=== PATIENT | female | born 1955 ===

== ENCOUNTER 2022-05-30 17:21 | Inpatient (IN) | payer MEDICARE ==
[~2022-05-30] VITALS: Ht 162.6 cm; Wt 126.9 kg
[2022-05-30] VITALS (23 sets, daily range): BP systolic 79–140; BP diastolic 43–110
[2022-05-30 17:58] LABS: Source, Urine Foley catheter
[2022-05-30 18:06] LABS: Bilirubin, Urine Neg (Neg); Blood, Urine 2+ (Neg); Color, Urine Yellow (P-Yellow); Glucose Qualitative, Urine 4+ (Neg); Ketones, Urine 2+ (Neg); Leukocyte Esterase, Urine 1+ (Neg); Nitrite, Urine Neg (Neg); Protein, Urine 2+ (Neg); Specific Gravity, Urine 1.015 (1.003-1.022); Urobilinogen, Urine NORM (Normal)
[2022-05-30 18:21] LABS: Appearance, Urine Hazy (Clear)
[2022-05-30 18:23] LABS: Mucus Light (0-Heavy)
[2022-05-30 18:24] LABS: Amorphous Light (0-Heavy); Bacteria Many /hpf; Red Blood Cells, Urine 0-2 /hpf (0-2); Squamous Epithelial Cells Rare /hpf (Few)
--- NOTE | 2022-05-30 18:39 | NUR ---
ADMIT PT ARRIVED TO ICU [address] [facility] A DIRECT ADMIT AT 1655. PT IS AWAKE, ALERT, AND ORIENTED UPON ARRIVAL. PT SLOW TO ANSWER QUESTIONS AT TIMES. PT DENIES PAIN, NAUSEA, AND SOB. VITAL SIGNS STABLE. PT INITIALLY ARRIVED ON LEVOPHED GTT AT 6.1 MCG/MIN AND INSULIN GTT AT 20 UNITS/HR. LEVOPHED TITRATED TO 5 MCG/MIN AND INSULIN GTT TO 5 UNITS/HR. CBG CHECK 360'S UPON ARRIVAL. CANTU IN PLACE UPON ARRIVAL WITH YELLOW OUTPUT NOTED. UA SENT. PICC PLACED TO [facility] AT THIS TIME. NS STARTED AT 250 ML/HR PER ORDERS. LS CLEAR. PT ON ROOM AIR. PT ABLE TO TURN SELF SIDE TO SIDE IN BED. SKIN IS C/D/I, MINIMAL REDDNESS TO COCCYX NOTED. WILL CONTINUE TO MONITOR AND REPORT OFF TO ONCOMING RN.
[2022-05-30] MEDS ORDERED: BASAGLAR K100 UNIT/3 SC (19:00)
[2022-05-30] MEDS ORDERED: Prinivil10 MG PO (19:01)
[2022-05-30] MEDS ORDERED: ATEN50 PO (19:03)
[2022-05-30] MEDS ORDERED: FUROSEMIDE40 MG PO (19:05)
[2022-05-30] MEDS ORDERED: PREMPRO (19:05)
[2022-05-30] MEDS ORDERED: ATORVASTATIN CA20 MG PO (19:06)
[2022-05-30] MEDS ORDERED: PRAMIPEXOLE D0.25 M1 PO (19:06)
[2022-05-30 19:17] LABS: Magnesium, Blood 1.9 mg/dL (1.6-2.4); Uric Acid, Blood 10.2 mg/dL (2.6-6.0)
[2022-05-30 19:24] LABS: Albumin, Blood 2.9 g/dL (3.4-5.0); Albumin/Globulin Ratio 0.9 (0.8-1.8); Bilirubin, Total 0.4 mg/dL (0.1-1.0); Bun/Creatinine Ratio 22.8 (12.0-20.0); Calcium, Blood 9.2 mg/dL (8.5-10.1); Creatinine, Blood 2.5 mg/dL (0.40-1.00); Globulin, Blood 3.3 g/dL (2.2-4.0); Phosphorus, Blood 3.8 mg/dL (2.5-4.9); Potassium, Blood 3.3 mmol/L (3.5-5.5); Thyroid Stimulating Hormone 0.769 uIU/mL (0.360-4.800); Total Protein, Blood 6.2 g/dL (6.4-8.2)
--- NOTE | 2022-05-30 20:47 | NUR ---
ASSUMED CARE AT 1900 PATIENT IS ALERT AND ORIENTED X4. 02 SATS >95% ON RA, DENIES SOB. HR SB-SR 50-60s. BP STABLE ON LEVOPHED 3 MCG/MIN. DENIES CP/PRESSURE. CANTU PATENT AND DRAINING TO GRAVITY, CLEAR YELLOW. INSULIN GTT INFUSING, REPLACING POTASSIU. REPOSITIONS SELF IN BED. AT BEDSIDE FOR A COUPLE HOURS. CALL LIGHT IN REACH
[2022-05-30 23:02] LABS: Bun/Creatinine Ratio 27.3 (12.0-20.0); Calcium, Blood 9.1 mg/dL (8.5-10.1); Creatinine, Blood 1.87 mg/dL (0.40-1.00); Magnesium, Blood 1.9 mg/dL (1.6-2.4); Phosphorus, Blood 2.9 mg/dL (2.5-4.9); Potassium, Blood 3.3 mmol/L (3.5-5.5)
[2022-05-31] VITALS (37 sets, daily range): BP systolic 71–139; BP diastolic 39–112
[2022-05-31 03:11] LABS: Bun/Creatinine Ratio 28.7 (12.0-20.0); Calcium, Blood 8.8 mg/dL (8.5-10.1); Creatinine, Blood 1.64 mg/dL (0.40-1.00); Magnesium, Blood 1.6 mg/dL (1.6-2.4); Phosphorus, Blood 3.1 mg/dL (2.5-4.9); Potassium, Blood 3.9 mmol/L (3.5-5.5)
--- NOTE | 2022-05-31 06:14 | NUR ---
SHIFT SUMMARY PATIENT REMAINS ALERT AND ORIENTED X4. 02 SATS >95% ON RA, DENIES SOB. HR 60-70s WITH PVCs. BP STABLE, LEVOPHED TITRATED OFF THIS AM. DENIES CP/PRESSURE. INSULING DRIP OFF AT APPROX 0030, LONG ACTING INSULIN GIVEN AN HOUR PRIOR. PATIENT EATING. FLUIDS REMAINS INFUSING. INDEPENDENT IN BED. CALL LIGHT IN REACH
[2022-05-31 07:01] LABS: Magnesium, Blood 1.5 mg/dL (1.6-2.4)
[2022-05-31 07:02] LABS: Bun/Creatinine Ratio 29.9 (12.0-20.0); Calcium, Blood 8.4 mg/dL (8.5-10.1); Creatinine, Blood 1.37 mg/dL (0.40-1.00); Phosphorus, Blood 2.9 mg/dL (2.5-4.9); Potassium, Blood 3.8 mmol/L (3.5-5.5)
[2022-05-31 12:09] LABS: Bun/Creatinine Ratio 28.8 (12.0-20.0); Calcium, Blood 8.5 mg/dL (8.5-10.1); Creatinine, Blood 1.32 mg/dL (0.40-1.00); Potassium, Blood 3.8 mmol/L (3.5-5.5)
--- NOTE | 2022-05-31 12:18 | NUR ---
PT ARRIVED TO UNIT FROM ICU BROUGHT VIA WHEELCHAIR, ABLE TO STAND AND TRANSFER INDEPENDENTLY. PT DENIES NEEDS AT THIS TIME. TOLERATING PO WELL. CALL LIGHT PROVIDED, EDUCATED ON USE. [id number].
--- NOTE | 2022-05-31 12:18 | NUR ---
TRANSFER REPORT GIVEN TO CAROLINE HOLGUIN. PT TRANSFERRED TO RM 216 VIA . ALL BELONGINGS INCLUDING CELL PHONE WITH STYLUS TRANSFERRED WITH PT. PT TOLERATED TRANSFER WELL.
--- NOTE | 2022-05-31 16:04 | NUR ---
MEDICATION ADJUSTMENTS ADJUSTED INSULIN SLIDING SCALE FROM LOW TO MEDIUM AND NS INFUSION FROM [address] PROGRESS NOTE.
--- NOTE | 2022-05-31 18:07 | NUR ---
SHIFT SUMMARY PT TRASNFERED FROM ICU EARLY THIS AFTERNOON. PT ADMITTED FOR DKA AFTER DM II DIAGNOSIS ON 05/29. PT BLOOD SUGARS TRENDING HIGH, 200-300. PT ADJUSTED TO MEDIUM SLIDING SCALE TODAY. BLOOD PRESSURE SOFT, SBP IN 90S. PT RECEIVING FLUIDS AND MEDICATED PER EMAR. PT COMPLAINS OF SYMPTOMS RELATED TO RESLESS LEG SYMDROME, MEDICATED PER EMAR. PT VOIDS INDEPENDENTLY. PT ENCOURAGED TO DRINK FLUIDS. A&OX4. O2 SAT >95% ON RA. PT RESTING IN BED, CALL LIGHT WITHIN REACH. WILL REPORT TO NOC SHIFT.
--- NOTE | 2022-06-01 03:39 | NUR ---
SHIFT SUMMERY. PT RESTING IN BED. PTS CBG WAS 386 DR CALLED AND S/S WAS INCRESED TO HIGH SCALE. PT HAD BEEN GIVEN 5 UNITS OF INSULIN ON MED SCALE SO ANOTHER 1 UNIT WAS GIVEN TO MAKE 6 UNITS ON HIGH SCALE. PT ALERT AND ORIENTED , RESTING IN BED, UP AT WARD TO BR. PT STATED HER FEET REALY HURT AND SHE IS NOT ABLE TO REST. PT GIEN YONI OL AND RLS MED. ICE PACK GIEN TO PT TO SEE IF IT WOULD HELP. LOTION PUT ON FEET . CALLED AND ORDER GIVEN FOR LYRICA. PT HAD SAID SHE WOUOLD NOT USE GABAPENTIN IT BOTHERED HER WHEN SHE HAD TAKEN IT BEFOR, PT ALSO REFUSED THE LYRICA. PT LAYING IN TRYING TO REST BUT LEGS AND FEET ARE CONTINUING TO MOVE CONSTANTLY. CALL LIGHT IN REACH.
[2022-06-01 04:44] LABS: BASOPHILS ABSOLUTE AUTO 0.02 K/mm3 (0.00-0.23); BASOPHILS PERCENT AUTO 0 % (0-2); EOSINOPHILS ABSOLUTE AUTO 0.19 K/mm3 (0.00-0.68); EOSINOPHILS PERCENT AUTO 3 % (0-6); Hematocrit 32.3 % (33.0-51.0); Hemoglobin 11.1 g/dL (11.5-16.0); IMMATURE GRAN ABSOLUTE AUTO 0.05 K/mm3 (0.00-0.10); IMMATURE GRAN PERCENT AUTO 1 % (0-1); LYMPHOCYTES ABSOLUTE AUTO 1.46 K/mm3 (0.84-5.20); LYMPHOCYTES PERCENT AUTO 22 % (21-46); MONOCYTES ABSOLUTE AUTO 0.64 K/mm3 (0.16-1.47); MONOCYTES PERCENT AUTO 10 % (4-13); Mean Corpuscular HGB 31.8 pg (26.0-34.0); Mean Corpuscular HGB Conc 34.4 g/dL (31.5-36.5); Mean Corpuscular Volume 93 fL (80-100); Mean Platelet Volume 10.7 fL (9.1-12.4); NEUTROPHILS ABSOLUTE AUTO 4.39 K/mm3 (1.96-9.15); NEUTROPHILS PERCENT AUTO 65 % (41-73); Platelet Count 218 K/mm3 (150-400); RDW Coefficient Variation 13.1 % (11.7-14.2); RDW Standard Deviation 43.9 fL (35.1-46.3); Red Blood Cell Count 3.49 M/mm3 (3.80-5.20); White Blood Cell Count 6.75 K/mm3 (4.00-11.30)
[2022-06-01 05:12] VITALS: BP 135/52
[2022-06-01 05:35] LABS: Bun/Creatinine Ratio 28.4 (12.0-20.0); Calcium, Blood 8.5 mg/dL (8.5-10.1); Creatinine, Blood 0.88 mg/dL (0.40-1.00); Potassium, Blood 3.5 mmol/L (3.5-5.5)
[2022-06-01 07:21] VITALS: BP 171/71
[2022-06-01 08:55] VITALS: BP 150/61
--- NOTE | 2022-06-01 10:31 | NUR ---
DR. PALOMARES IN WITH PT DISCUSSING DM II MANAGEMENT. A1C AT 16.4, GOAL IS <7. RLS SYMPTOMS INCREASED SECONDARY TO NEUROPATHY. WILL ADMINISTER LIDOCAINE PATCH PER DR RECOMMENDATION. PT TO FOLLOW UP WITH PRIMARY FOR INSULIN MANAGEMENT.
[2022-06-01] MEDS ORDERED: ATEN50 PO (11:15)
[2022-06-01] MEDS ORDERED: DULO30 PO (11:15)
[2022-06-01] MEDS ORDERED: ALLO100 PO (11:16)
[2022-06-01] MEDS ORDERED: HUMALOG KW100 UNIT/1 SC (11:18)
[2022-06-01] MEDS ORDERED: LIDOCAINE1 EAC1 TOP (11:18)
[2022-06-01] MEDS ORDERED: FURO20 PO (11:19)
[2022-06-01] MEDS ORDERED: POTA10T PO (11:19)
[2022-06-01] MEDS ORDERED: INSULANPEN SC (11:23)
[2022-06-01] MEDS ORDERED: LISI5 PO (11:24)
[2022-06-01 13:58] VITALS: BP 140/97
--- NOTE | 2022-06-01 15:01 | NUR ---
DISCHARGE SUMMARY S/P DKA, A/OX4, VSS, TOLERATING PO, VOIDING, INDEPENDENT IN THE ROOM. LABS DISCUSSED WITH THE PATIENT AND HER BY PROVIDER, BP BACK TO BASELINE WITH GOOD URINE OUTPUT, BLOOD SUGARS MANAGED. DISCUSSED DISCHARGE INSTRUCTIONS WITH THE PATIENT AND HER INCLUDING HOME CARE, FOLLOW UP WITH PRIMARY CARE, MEDICATION CHANGES, AND DIABETIC INFORMATION INCLUDING DIET, FOOT CARE, LIFESTYLE CHANGES, AND SUPPORT. NO QUESTIONS AT TIME OF DISCHARGE, REPORTS ALREADY DOING SOME OF HIS OWN RESEARCH TO HELP HIS . PICC LINE REMOVED AND DOCUMENTED AND COVERED WITH OCCLUSIVE DRESSING. ESCORTED OUT VIA WC TO PRIVATE AUTO TO GO HOME.
== END 2022-06-01 14:40 | disposition home or self-care (01) | DRG 638 ==
LOC: ICUW 17:21 → SURS 05-31 12:17
PROVIDERS: ADMIT Internal Medicine
PROC: 3E033XZ Introduction of Vasopressor into Peripheral Vein, Percutaneous Approach (ICD-10-PCS; principal; 2022-05-30)
DX: E11.10 Type 2 diabetes mellitus with ketoacidosis without coma (principal); N17.9 Acute kidney failure, unspecified; E86.0 Dehydration; E79.0 Hyperuricemia without signs of inflammatory arthritis and tophaceous disease; I10 Essential (primary) hypertension; E78.5 Hyperlipidemia, unspecified; E11.42 Type 2 diabetes mellitus with diabetic polyneuropathy; G25.81 Restless legs syndrome; I95.9 Hypotension, unspecified; B96.89 Other specified bacterial agents as the cause of diseases classified elsewhere; K21.9 Gastro-esophageal reflux disease without esophagitis; Z98.890 Other specified postprocedural states; Z90.49 Acquired absence of other specified parts of digestive tract; Z98.51 Tubal ligation status; Z79.899 Other long term (current) drug therapy; Z79.02 Long term (current) use of antithrombotics/antiplatelets; Z79.01 Long term (current) use of anticoagulants; Z88.8 Allergy status to other drugs, medicaments and biological substances; Z87.891 Personal history of nicotine dependence
CPT/HCPCS: 36569; 80048; 80053; 81001; 82947; 83036; 83735; 84100; 84443; 84550; 85025; 87086; A9270; C1751; J1644; J1815; J3475; J3480; J7030; J7050; J7060